=== PATIENT | female | born 1940 | race Caucasian/White ===

== ENCOUNTER → 2017-10-02 | Emergency (ER) | payer MEDICARE, BC ==
[~2017-10-02] MED LIST: 00186-0370-20 IH; ALBUTEROL0.83 MG/ML IH; ANORO IH; ATROVENT I0.2 MG/1 M IH; CALCIUM 600 PLU1 TAB PO; CEPHALEXIN500 M1 PO; CLARITIN 1010 MG/TAB PO; DALIRESP500 MCG PO; DIFLUCAN 100MG100 MG PO; LASIX 20MG TABL20 MG PO; LEVAQUIN 5500 MG/TA1 PO; LEVAQUIN 750MG750 M1 PO; LIPITOR 40MG TA40 MG PO; MELATONIN5 M1 PO; MIRALAX PA17 GM/Dose PO; MOBIC15 MG PO; NATURE'S BLE1000 MCG PO; NIGHT TIME SLEE25 MG PO; PERFOROMIS20 MCG/2 M IH; PREDNISONE10 MG PO; PREDNISONE20 MG PO; PROAIR; PROAIR HFA0.09 MG/AC IH; ROXICODONE 55 MG/TAB PO; RT SPIRIVA18 MCG IH; SENNA8.6 MG PO; STIOLTO RESPIMAT4 GM IH; THEO-DUR 1100 MG/TAB PO; THEO-DUR 2200 MG/TAB PO; TYLENOL 325MG325 MG PO; TYLENOL 500MG500 MG PO; VITAMIN B-1000 MCG/T PO; VITAMIN D31000 I1 PO; ZOFRAN ODT4 MG PO
== END ==
LOC: COL.ER 12:29
DX: Z72.89 Other problems related to lifestyle (principal)

== ENCOUNTER 2018-05-19 09:45 | Emergency (ER) | payer MEDICARE, BC ==
[~2018-05-19] VITALS: Ht 157.5 cm; Wt 50.9 kg
[~2018-05-19 09:45] MED LIST changes: +ASPIRIN 81M81 MG/TA2 PO; +BETAPACE 80MG80 MG PO; +CARTIA XT180 MG PO; +COUMADIN 5MG5 MG/TAB PO
[2018-05-19 09:48] VITALS: TEMP 98
[2018-05-19 10:32] LABS: BASO % 0.5 % (0.0-2.0); EOS # 0.2 (0.0-0.7); EOS % 1.9 % (0-4.0); GRAN # 5.9 (1.4-6.5); GRAN % 66.8 % (42.2-75.2); HEMATOCRIT 43.1 % (37.0-47.0); HEMOGLOBIN 13.8 g/dl (12.5-16.0); LYMPH # 1.9 (1.2-3.4); LYMPH % 21.9 % (20.0-51.0); MEAN CELL VOLUME 88 fl (80.0-100.0); MEAN CORPUSCULAR HEMOGLOBIN 28 pg (27.0-31.0); MEAN CORPUSCULAR HGB CONC 32 g/dl (33.0-37.0); MEAN PLATELET VOLUME 10.2 fl (7.4-10.4); MONO # 0.8 (0.1-0.6); MONO % 8.6 % (1.7-9.3); PLATELET COUNT 184 K/mm3 (130-400); RED BLOOD COUNT 4.89 M/mm3 (4.10-5.30); REDCELL DISTRIBUTION WIDTH-CV 13.2 % (11.5-14.5)
[2018-05-19 10:37] LABS: INR 3.4 (0.8-3.0); PROTHROMBIN TIME 38.8 SECONDS (9.7-12.8)
[2018-05-19 10:41] LABS: ALANINE AMINOTRANSFERASE 55 U/L (9-52); ALBUMIN 4.3 gm/dL (3.5-5.0); ALKALINE PHOSPHATASE 70 U/L (50-136); ANION GAP 5 mmol/L (7-16); AST,SGOT 46 U/L (15-37); BILIRUBIN,TOTAL 0.8 mg/dL (0.0-1.0); BLOOD UREA NITROGEN 16 mg/dL (7-17); CALCIUM 9.9 mg/dL (8.4-10.2); CARBON DIOXIDE 39 mmol/L (22-30); CHLORIDE 98 mmol/L (98-107); CREATININE, serum 0.59 mg/dL (0.52-1.25); GLUCOSE 86 mg/dL (74-106); SODIUM 142 mmol/L (137-145); TOTAL PROTEIN 7.2 gm/dL (6.4-8.2)
[2018-05-19 10:57] LABS: TROPONIN-I < 0.012 ng/mL (0.000-0.034)
[2018-05-19 12:04] VITALS: BP 114/73; PULSE 71
== END 2018-05-19 12:05 | disposition home or self-care (01) ==
LOC: COL.ER 09:45
PROVIDERS: Family Medicine
DX: R06.02 Shortness of breath (principal); I48.91 Unspecified atrial fibrillation; J44.9 Chronic obstructive pulmonary disease, unspecified; Z87.891 Personal history of nicotine dependence

== ENCOUNTER 2024-01-16 17:13 | Emergency (ER) | payer MEDICARE, BC ==
[~2024-01-16] VITALS: Ht 152.4 cm; Wt 47.7 kg
[~2024-01-16 17:13] MED LIST changes: +AMOXICILLIN 8751 TAB PO; +ATROVENTNS0.03% NS; +B-121000 MCG PO; +BIOTIN5000 MCG PO; +CALCIUM 600MG+D1 TAB PO; +CALCIUM CARBON650 M2 PO; +CARDIZEM CD 18180 MG PO; +CARTIA XT240 MG PO; +IPRATROPIUM BROM3 M1 IH; -NATURE'S BLE1000 MCG PO; +PULMICORT0.5 MG/2 M IH; +THEO-DUR 3300 MG/TAB PO; +TRELEGY ELLIPT1 EAC1 IH; +ZITHROMAX 250M250 MG PO
[2024-01-16 17:15] VITALS: TEMP 98.2
[2024-01-16] MEDS ORDERED: fentaNYL 50 MCG/ML 2 ML VIAL IV ONE (18:15)
[2024-01-16] MEDS ORDERED: Ketorolac 15 MG/ML VIAL IV ONE (20:30)
[2024-01-16] MEDS ORDERED: NORCO 325 MG-51 TAB PO (22:29)
[2024-01-16] MEDS ORDERED: Home HYDROcodone/Acetaminophen 5/325 MG #4 TABS/PACK PO ONE (22:30)
[2024-01-16 22:45] VITALS: BP 126/69; PULSE 89
[2024-01-17] MEDS ORDERED: CENTRUM SILVER1 CTB PO (16:17)
[2024-01-17] MEDS ORDERED: PHARMASSURE ZIN50 MG PO (16:18)
[2024-01-17] MEDS ORDERED: VITAMIN D250 MCG PO (16:20)
[2024-01-17] MEDS ORDERED: VITAMINC1000TA PO (16:20)
[2024-01-17] MEDS ORDERED: PROAIR RES117 MCG/Ac IH (16:24)
[2024-01-17] MEDS ORDERED: COUMADIN 22.5 MG/TAB PO (17:19)
[2024-01-20] MEDS ORDERED: COUMADIN 3MG3 MG/TAB PO (16:09)
[2024-01-21] MEDS ORDERED: COLACE 100100 MG/CAP PO (08:45)
[2024-01-21] MEDS ORDERED: MIRALAX510G PO (08:45)
[2024-01-21] MEDS ORDERED: NORCO 325 MG-51 TAB PO ×2 (08:46→08:51)
== END 2024-01-16 22:45 | disposition home or self-care (01) ==
LOC: COL.ER 17:13
DX: S42.402A Unspecified fracture of lower end of left humerus, initial encounter for closed fracture (principal); S60.222A Contusion of left hand, initial encounter; S80.02XA Contusion of left knee, initial encounter; S70.02XA Contusion of left hip, initial encounter; Z87.891 Personal history of nicotine dependence; W01.0XXA Fall on same level from slipping, tripping and stumbling without subsequent striking against object, initial encounter; Y92.009 Unspecified place in unspecified non-institutional (private) residence as the place of occurrence of the external cause
CPT/HCPCS: J1885; J3010